=== PATIENT | female | born 1980 | race Caucasian/White ===

== ENCOUNTER → 2022-05-29 | Outpatient (CLI) | payer OTHER, SELFPAY | END | disposition home or self-care (01) | LOC: SL 19:52 | PROVIDERS: PCP Family Medicine; Referring Provider Internal Medicine Endocrinology, Diabetes & Metabolism; Visit Provider Internal Medicine Endocrinology, Diabetes & Metabolism | DX: R53.83 Other fatigue (principal); G47.10 Hypersomnia, unspecified | CPT/HCPCS: 95810 ==

== ENCOUNTER → 2022-06-15 | Outpatient (CLI) | payer OTHER, SELFPAY ==
[2022-06-15 12:34] LABS: Absolute Lymphocyte Count 2.22 X10^3/uL (0.83-4.51); Basophil# 0.03 X10^3/uL; Basophil% 0.4 % (0-1); Eosinophil# 0.14 X10^3/uL; Eosinophils% 1.8 % (0-5); Hematocrit 40.4 % (37-47); Hemoglobin 13.2 g/dL (12.0-15.0); Lymphocyte # 2.22 X10^3/ul (0.83-4.51); Lymphocyte % 28.3 % (19-41); Mean Corp Hgb Conc 32.7 g/dL (32-36); Mean Corpuscular Hgb 30.8 pg (27.0-32.0); Mean Corpuscular Volume 94.2 fL (81-99); Mean Platelet Vol. 11.6 fl (6.2-12.0); Monocyte# 0.44 X10^3/uL; Monocyte% 5.6 % (0-10); NRBC Flagged by Analyzer 0 % (0-5); Neutrophil # 4.98 X10^3/uL (2.7-7.7); Neutrophil % 63.4 % (47-70); Platelet Count 261 K/mm3 (150-450); RBC Distribution Width CV 12.6 % (11.6-14.6); RBC Distribution Width SD 43.9 fl (35.1-43.9); Red Blood Count 4.29 M/mm3 (4.2-5.4); White Blood Count 7.9 K/mm3 (4.4-11.0)
[2022-06-15 12:36] LABS: Erythrocyte Sedimentation Rate 17 mm/hr (0-30)
[2022-06-15 13:05] LABS: ALB/GLOB Ratio 0.9 RATIO (0.9-2.4); AST(SGOT) 16 U/L (15-37); Alanine Aminotransfer ALT/SGPT 20 U/L (13-56); Albumin, Serum 3.6 g/dL (3.2-5.0); Alkaline Phosphatase 78 U/L (45-117); Anion Gap 8 (5-15); BUN 11 mg/dL (7-18); BUN/Creat Ratio 13.2 RATIO (10-20); Calcium,Total 9.2 mg/dL (8.5-10.1); Chloride 104 mmol/L (98-107); Creatinine, Serum 0.83 mg/dL (0.55-1.02); EST Glomerular Filtration Rate 81 mL/min (>60); Est Glom Filt Rate - Afr Amer 98 mL/min (>60); Globulin 4.1 g/dL (2.2-4.2); Glucose 89 mg/dL (74-106); Potassium 4.1 mmol/L (3.5-5.1); Protein, Total 7.7 g/dL (6.4-8.2); Rheumatoid Factor < 10.0 IU/mL (<15); Sodium Level 139 mmol/L (136-145)
[2022-06-15 13:44] LABS: Hepatitis B Surface Antibody Non-Reactive; Hepatitis B Surface Antigen Non-Reactive (Nonreactive); Hepatitis C Antibody Non-Reactive (Nonreactive)
[2022-06-16 19:52] LABS: ANTINUCLEAR ANTIBODIES DIRECT Negative (Negative)
[2022-06-16 19:53] LABS: CCP IgG Antibodies 3 units (0-19)
== END | disposition home or self-care (01) ==
LOC: MTLAB 10:58
PROVIDERS: PCP Family Medicine; Referring Provider Internal Medicine Rheumatology; Visit Provider Internal Medicine Rheumatology
DX: M06.4 Inflammatory polyarthropathy (principal); F41.9 Anxiety disorder, unspecified; J45.909 Unspecified asthma, uncomplicated
CPT/HCPCS: 36415; 80053; 85025; 85652; 86038; 86140; 86200; 86431; 86706; 86803; 87340

== ENCOUNTER → 2022-09-23 | Outpatient (CLI) | payer OTHER, SELFPAY ==
[2022-09-23 15:37] LABS: Absolute Lymphocyte Count 1.96 X10^3/uL (0.83-4.51); Absolute Neutrophil Count 5.5 X10^3/uL (2.0-7.7); Basophil# 0.03 X10^3/uL; Basophil% 0.4 % (0-1); Eosinophil# 0.11 X10^3/uL; Eosinophils% 1.4 % (0-5); Hematocrit 37.7 % (37-47); Hemoglobin 12.4 g/dL (12.0-15.0); Lymphocyte # 1.96 X10^3/ul (0.83-4.51); Lymphocyte % 24.5 % (19-41); Mean Corp Hgb Conc 32.9 g/dL (32-36); Mean Corpuscular Hgb 30.7 pg (27.0-32.0); Mean Corpuscular Volume 93.3 fL (81-99); Mean Platelet Vol. 12.1 fl (6.2-12.0); Monocyte# 0.38 X10^3/uL; Monocyte% 4.8 % (0-10); NRBC Flagged by Analyzer 0 % (0-5); Neutrophil % 68.6 % (47-70); Platelet Count 262 K/mm3 (150-450); RBC Distribution Width CV 12.5 % (11.6-14.6); RBC Distribution Width SD 43.5 fl (35.1-43.9); Red Blood Count 4.04 M/mm3 (4.2-5.4)
[2022-09-23 16:07] LABS: ALB/GLOB Ratio 0.9 RATIO (0.9-2.4); AST(SGOT) 19 U/L (15-37); Alanine Aminotransfer ALT/SGPT 15 U/L (13-56); Albumin, Serum 3.4 g/dL (3.2-5.0); Alkaline Phosphatase 71 U/L (45-117); Anion Gap 6 (5-15); BUN 10 mg/dL (7-18); BUN/Creat Ratio 11.5 RATIO (10-20); Chloride 106 mmol/L (98-107); Creatinine, Serum 0.87 mg/dL (0.55-1.02); EST Glomerular Filtration Rate 77 mL/min (>60); Est Glom Filt Rate - Afr Amer 93 mL/min (>60); Globulin 3.8 g/dL (2.2-4.2); Glucose 87 mg/dL (74-106); Potassium 4.2 mmol/L (3.5-5.1); Protein, Total 7.2 g/dL (6.4-8.2); Sodium Level 136 mmol/L (136-145)
== END | disposition home or self-care (01) ==
LOC: MTLAB 12:36
PROVIDERS: PCP Family Medicine; Referring Provider Internal Medicine Rheumatology; Visit Provider Internal Medicine Rheumatology
DX: M06.4 Inflammatory polyarthropathy (principal); Z79.899 Other long term (current) drug therapy
CPT/HCPCS: 36415; 80053; 85025

== ENCOUNTER → 2023-01-18 | Outpatient (CLI) | payer OTHER, SELFPAY ==
[2023-01-18 17:51] LABS: Absolute Lymphocyte Count 2.63 X10^3/uL (0.83-4.51); Absolute Neutrophil Count 5.8 X10^3/uL (2.0-7.7); Basophil# 0.04 X10^3/uL; Basophil% 0.4 % (0-1); Eosinophil# 0.08 X10^3/uL; Eosinophils% 0.9 % (0-5); Hematocrit 36.8 % (37-47); Hemoglobin 12.4 g/dL (12.0-15.0); Lymphocyte # 2.63 X10^3/ul (0.83-4.51); Lymphocyte % 29.1 % (19-41); Mean Corp Hgb Conc 33.7 g/dL (32-36); Mean Corpuscular Hgb 31.4 pg (27.0-32.0); Mean Corpuscular Volume 93.2 fL (81-99); Mean Platelet Vol. 11.5 fl (6.2-12.0); Monocyte# 0.48 X10^3/uL; Monocyte% 5.3 % (0-10); NRBC Flagged by Analyzer 0 % (0-5); Neutrophil % 64.1 % (47-70); Platelet Count 259 K/mm3 (150-450); RBC Distribution Width CV 12.3 % (11.6-14.6); RBC Distribution Width SD 42.4 fl (35.1-43.9); Red Blood Count 3.95 M/mm3 (4.2-5.4); White Blood Count 9.1 K/mm3 (4.4-11.0)
[2023-01-18 18:02] LABS: ALB/GLOB Ratio 0.9 RATIO (0.9-2.4); AST(SGOT) 17 U/L (15-37); Alanine Aminotransfer ALT/SGPT 20 U/L (13-56); Albumin, Serum 3.6 g/dL (3.2-5.0); Alkaline Phosphatase 78 U/L (45-117); Anion Gap 6 (5-15); BUN 12 mg/dL (7-18); BUN/Creat Ratio 12.8 RATIO (10-20); Calcium,Total 8.8 mg/dL (8.5-10.1); Chloride 105 mmol/L (98-107); Creatinine, Serum 0.94 mg/dL (0.55-1.02); EST Glomerular Filtration Rate 70 mL/min (>60); Est Glom Filt Rate - Afr Amer 85 mL/min (>60); Globulin 4.1 g/dL (2.2-4.2); Glucose 83 mg/dL (74-106); Potassium 3.6 mmol/L (3.5-5.1); Protein, Total 7.7 g/dL (6.4-8.2); Sodium Level 139 mmol/L (136-145)
== END | disposition home or self-care (01) ==
PROVIDERS: PCP Family Medicine; Referring Provider Internal Medicine Rheumatology; Visit Provider Internal Medicine Rheumatology
DX: M06.4 Inflammatory polyarthropathy (principal); J45.909 Unspecified asthma, uncomplicated; Z79.899 Other long term (current) drug therapy
CPT/HCPCS: 36415; 80053; 85025

== ENCOUNTER → 2023-07-21 | Outpatient (CLI) | payer OTHER, SELFPAY ==
[2023-07-21 17:36] LABS: Absolute Lymphocyte Count 2.39 X10^3/uL (0.83-4.51); Absolute Neutrophil Count 5.1 X10^3/uL (2.0-7.7); Basophil# 0.03 X10^3/uL; Basophil% 0.4 % (0-1); Eosinophil# 0.13 X10^3/uL; Eosinophils% 1.6 % (0-5); Hematocrit 38.7 % (37-47); Hemoglobin 12.5 g/dL (12.0-15.0); Lymphocyte # 2.39 X10^3/ul (0.83-4.51); Mean Corp Hgb Conc 32.3 g/dL (32-36); Mean Corpuscular Volume 92.8 fL (81-99); Mean Platelet Vol. 11.5 fl (6.2-12.0); Monocyte# 0.58 X10^3/uL; NRBC Flagged by Analyzer 0 % (0-5); Neutrophil # 5.08 X10^3/uL (2.7-7.7); Neutrophil % 61.8 % (47-70); Platelet Count 267 K/mm3 (150-450); RBC Distribution Width CV 12.4 % (11.6-14.6); RBC Distribution Width SD 42.6 fl (35.1-43.9); Red Blood Count 4.17 M/mm3 (4.2-5.4); White Blood Count 8.2 K/mm3 (4.4-11.0)
[2023-07-21 17:47] LABS: ALB/GLOB Ratio 0.9 RATIO (0.9-2.4); AST(SGOT) 16 U/L (15-37); Alanine Aminotransfer ALT/SGPT 17 U/L (13-56); Albumin, Serum 3.5 g/dL (3.2-5.0); Alkaline Phosphatase 78 U/L (45-117); Anion Gap 5 (5-15); BUN 8 mg/dL (7-18); BUN/Creat Ratio 7.9 RATIO (10-20); Calcium,Total 9.3 mg/dL (8.5-10.1); Chloride 105 mmol/L (98-107); Creatinine, Serum 1.01 mg/dL (0.55-1.02); EST Glomerular Filtration Rate 64 mL/min (>60); Est Glom Filt Rate - Afr Amer 78 mL/min (>60); Globulin 4.1 g/dL (2.2-4.2); Glucose 88 mg/dL (74-106); Potassium 3.6 mmol/L (3.5-5.1); Protein, Total 7.6 g/dL (6.4-8.2); Sodium Level 138 mmol/L (136-145)
== END | disposition home or self-care (01) ==
LOC: MTLAB 15:38
PROVIDERS: PCP Family Medicine; Referring Provider Internal Medicine Rheumatology; Visit Provider Internal Medicine Rheumatology
DX: M06.4 Inflammatory polyarthropathy (principal); Z79.899 Other long term (current) drug therapy
CPT/HCPCS: 36415; 80053; 85025

== ENCOUNTER → 2024-02-14 | Outpatient (CLI) | payer OTHER, SELFPAY ==
--- OUTSIDE RECORDS SUMMARY | 2024-02-14 07:52 | XMS RPT_ITS | CCD ---
Author Organization [facility] Care Team Providers Care Utility Division Project Manager Name Role Phone CURLY DO, DR TIM Pisano Primary Care Physician Cristiana Jefferson III Primary Care Provider CRISTIANA JEFFERSON III Primary Care Unavail able CURLY DO, DR TIM Pisano Primary Care Physician CURLY DO, DR TIM Pisano Attending Unavailabl e CURLY DO, DR TIM Pisano Primary Care Unavailabl e CURLY DO, DR TIM Pisano Primary Care Unavailabl e BLOCK 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 GOWN FITTERPREETI Attending Unavail able CURLY DO, DR TIM Pisano Attending Unavailabl e CURLY DO, DR TIM Pisano Primary Care Unavailabl e BLOCK 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 GOWN FITTERPREETI Attending Unavail able CURLY DO, DR TIM Pisano Primary Care Unavailabl e MORETTA DO, CHOCO CHUN Attending Unavaila ble CURLY DO, DR TIM Pisano Primary Care Unavailabl e CURLY DO, DR TIM Pisano Attending Unavailabl e CURLY DO, DR TIM Pisano Primary Care Unavailabl e Allergies Allergy Classification Reported Allergen(s) Allergy Type Date of Onset Reaction(s) Facility Bee/Wasp/Ant Venom (1 source) Bee/Wasp/Ant venom Substance Allergy Weal (disorder), Edema (finding) [facility] Penicillins (antibiotic) (1 source) Penicillin; Translations: [penicillins] Drug Allergy Eruption of skin (disorder) [facility] (8 sources) Bee/Wasp/Ant venom Allergy to substance Weal (disorder), Edema (finding) [facility] (8 sources) Penicillin; Translations: [penicillins] Drug Allergy Eruption of skin (disorder) [facility] Medications Current Medications Medication Drug Class(es) Dates Sig (Normalized) Sig (Original) clotrimazole 10 mg/ml topical cream (1 source) Azole Antifungal Start: 04-09-2023 End: 04-16-2023 clotrimazole 1% topical cream Apply 1 roderick, Topical, TID, X 7 day(s), # 15 gram(s), 0 Refill(s), [id number], Cream, 160, cm, 04/09/23 16:02:00 EST, Height, 95.5, kg, 04/09/23 16:02:00 EST, Dosing Weight Start Date: 04/09/23 Stop Date: 04/16/23 Status: Ordered doxycycline monohydrate 100 mg oral capsule (1 source) Tetracycline-clas s Drug Start: 05-19-2023 doxycycline monohydrate 100 mg oral capsule 0 Refill(s), 95.5 Start Date: 05/19/23 Status: Ordered escitalopram 20 mg oral tablet (11 sources) Serotonin Reuptake Inhibitor Start: 10-18-2023 escitalopram 20 mg oral tablet Dose : 20 mg = 1 tab(s), Oral, qDay, # 90 tab(s), 3 Refill(s), Pharmacy: [facility], Generalized anxiety disorder, 162, cm, 10/18/23 10:31:00 EDT, Height, kg, 10/18/23 10:31:00 EDT, Dosing Weight Start Date: 10/18/23 Status: Ordered Start: 10-12-2022 End: 01-01-2023 escitalopram 20 mg oral tabl et Dose : 20 mg = 1 tab(s), Oral, qDay, # 14 tab(s), 0 Refill(s), [id number], Generalized anxiety disorder, 160, cm, 12/17/22 15:11:00 EDT, Height, kg, 12/17/22 15:11:00 EDT, Dosing Weight Start Date: 12/18/22 Stop Date: 01/01/23 Status: Ordered Start: 12-17-2021 escitalopram 2 0 mg oral tablet Dose : 20 mg = 1 tab(s), Oral, qDay, # 90 tab(s), 3 Refill(s), Pharmacy: [facility], Generalized anxiety disorder, 161, cm, 11/06/21 13:59:00 EDT, Height, kg, 12/04/21 10:26:00 EDT, Dosing Weight Start Date: 12/17/21 Status: Ordered Start: 10-13-2021 escitalopram 2 0 mg oral tablet Dose : 20 mg = 1 tab(s), Oral, qDay, # 90 tab(s), 3 Refill(s), Pharmacy: [facility], Generalized anxiety disorder, 161, cm, 10/13/21 15:47:00 EDT, Height, kg, 10/13/21 15:47:00 EDT, Dosing Weight Start Date: 10/13/21 Status: Ordered Start: 01-09-2021 take 1 tablet by shabnam th once daily escitalopram 20 mg oral tablet See Instructions, 1 by mouth daily, # 90 tab(s), 3 Refill(s), Pharmacy: [facility], Generalized anxiety disorder, 160, cm, 01/01/21 16:04:00 EDT, Height, kg, 01/01/21 16:04:00 EDT, Dosing Weight Start Date: 01/09/21 Status: Ordered ethinyl estradiol 0.02 mg / ferrous fumarate 75 mg / norethindrone 1 mg oral tablet (12 sources) Estrogen Start: 09-02-2023 take 1 tablet by mouth once daily [facility] 05/15 oral tablet Dose = 1 tab(s), Oral, qDay, # 84 tab(s), 3 Refill(s), Pharmacy: [facility], Contraception management Well woman exam with routine gynecological exam, 160, cm, 10/21/23 10:35:00 EDT, Height, kg, 10/21/23 10:35:00 EDT, Dosing Weight Start Date: 10/21/23 Status: Ordered Start: 07-14-2022 take 1 tablet by shabnam th once daily June05/15 oral tablet Dose = 1 tab(s), Oral, qDay, # 84 tab(s), 4 Refill(s), Pharmacy: [facility], Well woman exam with routine gynecological exam Contraception management, 161, cm, 10/14/22 10:21:00 EDT, Height Start Date: 10/14/22 Status: Ordered Start: 08-19-2021 take 1 tablet by shabnam th once daily 05/15 oral tablet Dose = 1 tab(s), Oral, qDay, # 84 tab(s), 3 Refill(s), Pharmacy: [facility], Well woman exam Contraception management, 160, cm, 08/19/21 15:48:00 EDT, Height Start Date: 08/19/21 Status: Ordered hydroxychloroquine sulfate 200 mg oral tablet (6 sources) Antimalarial, Antirheumatic Agent Start: 08-22-2022 take 1 tablet by mouth twice daily hydroxychloroquine 200 mg oral tablet TAKE 1 TABLET BY MOUTH TWICE A DAY Start Date: 08/22/22 Status: Ordered ibuprofen 200 mg oral tablet (4 sources) Nonsteroidal Anti-inflammatory Drug Start: 04-14-2022 ibuprofen 200 mg oral tablet Dose : 400 mg = 2 tab(s), Oral, q6hr, PRN pain or fever, 0 Refill(s) Start Date: 04/14/22 Status: Ordered 1.09/22 oral tablet (1 source) Start: 05-13-2021 take 1 tablet by mouth once daily .09/22 oral tablet See Instructions, TAKE 1 TABLET DAILY, # 84 tab(s), 0 Refill(s), Pharmacy: [facility], 160, cm, 04/10/21 11:42:00 EST, Height, kg, 04/10/21 11:42:00 EST, Dosing Weight Start Date: 05/13/21 Status: Ordered levothyroxine sodium 0.05 mg oral tablet (1 source) l-Thyroxine Start: 08-01-2021 levothyroxine 50 mcg (0.05 mg) oral tablet Dose : 50 mcg = 1 tab(s), Oral, qDay, # 30 tab(s), 3 Refill(s), Pharmacy: [facility]/pharmacy #[id number], 160, cm, 08/01/21 9:20:00 EDT, Height Start Date: 08/01/21 Status: Ordered LORazepam 0.5 mg oral tablet (9 sources) Benzodiazepine Start: 10-18-2023 End: 12-17-2023 LORazepam 0.5 mg oral tablet Dose : 0.5 mg = 1 tab(s), Oral, q6h, fill 10/18/23. as needed for panic symptoms., # 30 tab(s), 1 Refill(s), [id number], Panic attack Generalized anxiety disorder, 162, cm, 10/18/23 10:31:00 EDT, Height, 98, kg, 10/18/23 10:31:00 EDT, Dosing Weight Start Date: 10/18/23 Stop Date: 12/17/23 Status: Ordered Start: 04-09-2023 End: 08-07-2023 LORazepam 0.5 mg oral tablet Dose : 0.5 mg = 1 tab(s), Oral, q6h, fill 04/09/23. as needed for panic symptoms., # 30 tab(s), 3 Refill(s), [id number], Panic attack Generalized anxiety disorder, 160, cm, 04/09/23 16:02:00 EST, Height, 95.5, kg, 04/09/23 16:02:00 EST, Dosing Weight Start Date: 04/09/23 Stop Date: 08/07/23 Status: Ordered Start: 10-12-2022 End: 02-09-2023 LORazepam 0.5 mg oral tablet Dose : 0.5 mg = 1 tab(s), Oral, q6h, fill 11/24/22. as needed for panic symptoms., # 30 tab(s), 3 Refill(s), [id number], Panic attack Generalized anxiety disorder, 163, cm, 10/12/22 10:34:00 EDT, Height, 92.3, kg, 10/12/22 10:34:00... Start Date: 10/12/22 Stop Date: 02/09/23 Status: Ordered Start: 10-13-2021 End: 02-10-2022 LORazepam 0.5 mg oral tablet Dose : 0.5 mg = 1 tab(s), Oral, q6h, as needed for panic symptoms., # 30 tab(s), 3 Refill(s), [id number], Panic attack Generalized anxiety disorder, 161, cm, 10/13/21 15:47:00 EDT, Height, 90.1, kg, 10/13/21 15:47:00 EDT, Dosing We... Start Date: 10/13/21 Stop Date: 02/10/22 Status: Ordered Start: 01-20-2021 End: 04-20-2021 LORazepam 0.5 mg oral tablet Dose : 0.5 mg = 1 tab(s), Oral, q6h, as needed for panic symptoms., # 30 tab(s), 2 Refill(s), [id number], Panic attack Generalized anxiety disorder, 160, cm, 01/20/21 16:15:00 EDT, Height, 85.1, kg, 01/20/21 16:15:00 EDT, Dosing We... Start Date: 01/20/21 Stop Date: 04/20/21 Status: Ordered montelukast 10 mg oral tablet (9 sources) Leukotriene Receptor Antagonist Start: 10-13-2021 montelukast 10 mg oral tablet Dose : 10 mg = 1 tab(s), Oral, qDay, # 90 tab(s), 3 Refill(s), Pharmacy: [facility], 161, cm, 10/13/21 15:47:00 EDT, Height, kg, 10/13/21 15:47:00 EDT, Dosing Weight Start Date: 10/13/21 Status: Ordered Start: 09-09-2020 montelukast 10 mg oral tablet Dose : 10 mg = 1 tab(s), Oral, qDay, # 90 tab(s), 3 Refill(s), Pharmacy: [facility], 160, cm, 07/01/20 15:13:00 EST, Height, kg, 07/01/20 15:13:00 EST, Dosing Weight Start Date: 09/09/20 Status: Ordered mupirocin 0.02 mg/mg topical ointment (1 source) RNA Synthetase Inhibitor Antibacterial Start: 04-09-2023 End: 04-16-2023 mupirocin 2% topical ointment Apply 1 roderick, Topical, TID, X 7 day(s), # 15 gram(s), 0 Refill(s), [id number], Ointment, 160, cm, 04/09/23 16:02:00 EST, Height, 95.5, kg, 04/09/23 16:02:00 EST, Dosing Weight Start Date: 04/09/23 Stop Date: 04/16/23 Status: Ordered phentermine hydrochloride 37.5 mg oral tablet (1 source) Sympathomimetic Amine Anorectic Start: 10-18-2023 End: 01-16-2024 phentermine 37.5 mg oral tablet Dose : 37.5 mg = 1 tab(s), Oral, qAM, fill 10/18/23. BMI 37., X 30 day(s), # 30 tab(s), 2 Refill(s), 01/16/24 11:10:00 AM EDT, [id number], BMI 37.0-37.9, adult, 162, cm, 10/18/23 10:31:00 EDT, Height, 98, kg, 10/18/23 10:31:00 EDT, Dosing Weight Start Date: 10/18/23 Stop Date: 01/16/24 Status: Ordered predniSONE 10 mg oral tablet (6 sources) Start: 10-18-2023 predniSONE 10 mg oral tablet as needed, 0 Refill(s) Start Date: 10/18/23 Status: Ordered Start: 05-05-2022 End: 05-17-2022 take 1 tablet by mouth twice daily prednisone 10mg tab (TAPER) Taper 30-20-10-5 mg x 3 days each dose, Oral, BID, # 39 tab(s), 0 Refill(s), Pharmacy: [facility]/pharm[facility] #[id number], Post-viral cough syndrome, 161.29, cm, 05/05/22 10:38:00 EST, Height Start Date: 05/05/22 Stop Date: 05/17/22 Status: Ordered Completed/Discontinued Medications Medication Drug Class(es) Dates Sig (Normalized) Sig (Original) [id number] 0.3 ml EPINEPHrine 1 mg/ml auto-injector (8 sources) alpha-Adrenergic Agonist, beta-Adrenergic Agonist, Catecholamine Start: 10-12-2022 EpiPen 2-Darren 0.3 mg injectable kit Dose : 0.3 mg =, Subcutaneous, AsDirected, PRN Allergic reaction, okay to switch to generic, # 1 kit(s), 0 Refill(s), [id number], 163, cm, 10/12/22 10:34:00 EDT, Height, kg, 10/12/22 10:34:00 EDT, Dosing Weight Start Date: 10/12/22 Status: Ordered Start: 10-13-2021 EpiPen 2-Darren 0 .3 mg injectable kit Dose : 0.3 mg =, Subcutaneous, AsDirected, PRN Allergic reaction, okay to switch to generic, # 1 kit(s), 0 Refill(s), [id number], 161, cm, 10/13/21 15:47:00 EDT, Height Start Date: 10/13/21 Status: Ordered gabapentin 100 mg oral capsule (1 source) Anti-epileptic Agent Start: 07-28-2023 End: 08-27-2023 gabapentin 100 mg oral capsule Dose : 100 mg = 1 cap(s), Oral, qHS, # 30 cap(s), 0 Refill(s), [id number], Cubital tunnel syndrome on right Thoracic outlet syndrome, 160, cm, 07/28/23 8:04:00 EDT, Height, 95.7, kg, 07/28/23 8:04:00 EDT, Dosing Weight Start Date: 07/28/23 Stop Date: 08/27/23 Status: Ordered traMADol hydrochloride 50 mg oral tablet (1 source) Opioid Agonist Start: 10-18-2023 traMADol 50 mg oral tablet Dose : 50 mg = 1 tab(s), Oral, TID, PRN as needed, 0 Refill(s), 95.7 Start Date: 10/18/23 Status: Ordered Problems Problem Classification Problem Date Documented Da te Episodic/Chronic Abdominal pain (3 sources) Right upper quadrant pain 12-16-2022 Episodic Acute and chronic tonsillitis (9 sources) Enlarged tonsil 01-02-2021 Chronic Allergic reactions (9 sources) Allergy to bee venom 10-09-2019 Episodic Anxiety disorders (9 sources) Generalized anxiety disorder 10-30-2019 Chronic Deficiency and other anemia (9 sources) Anemia 03-06-2021 Episodic Immunizations and screening for infectious disease (2 sources) Patient encounter status; Translations: [Encounter for immunization] Onset: 02-20-2022 Episodic Malaise and fatigue (9 sources) Fatigue 03-06-2021 Episodic Nutritional deficiencies (9 sources) Vitamin D deficiency 03-06-2021 Chronic Other connective tissue disease (2 sources) Hand pain 05-19-2023 Episodic Other nervous system disorders (1 source) Thoracic outlet syndrome 07-28-2023 Chronic Other non-traumatic joint disorders (9 sources) Joint pain 03-06-2021 Episodic Other nutritional; endocrine; and metabolic disorders (9 sources) Abnormal weight gain 03-06-2021 Episodic Other screening for suspected conditions (not mental disorders or infectious disease) (9 sources) Thyroid function tests abnormal 03-06-2021 Episodic Other upper respiratory disease (8 sources) Seasonal allergic rhinitis 10-13-2021 Chronic Other upper respiratory infections (6 sources) Chronic sinusitis 05-14-2022 Chronic Unclassified (2 sources) 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 2D standard and 3D tomosynthesis combination imaging performed through both breasts in the MLO and CC projection. Computer aided detection was utilized in the interpretation of this exam. COMPARISON: 10/15/2022 HISTORY: Breast cancer screening. FINDINGS: BREAST DENSITY: The breasts are heterogeneously dense, which may obscure small masses. There are no significant masses or calcifications. IMPRESSION: No mammographic evidence of malignancy. Continued screening with annual mammograms is recommended. Angely Radamesmusa risk calculations, generated with the history provided, report this patient's 10 year risk and lifetime risk for developing breast cancer at 2.1% and 15.1%, respectively. Based on this assessment tool, if the patient's calculated lifetime risk is below 20%, then the patient is considered at average risk for developing breast cancer. If the patient's calculated lifetime risk is at or above 20%, then the patient is considered high risk for developing breast cancer and may be a candidate for supplemental breast MRI screening in addition to annual mammographic screening per the [employer] [employer]. BIRADS: BI-RADS: 1: Negative RECALL: 1 year screening RECALL TYPE: mammo LETTER SENT: Normal BI-RADS 1 and 2 Interpreted by: Prosper Ortega MD Preliminary Report By: Prosper Ortega MD Electronically signed By Prosper Ortega MD Dictated Date: 10/22/2023 5:52:39 PM Prelim Date: 10/22/2023 6:18:03 PM Sign Date: 10/22/2023 6:18:03 PM Ordering Provider: PREETI BLOCK Suit Attendant: JAYA SANON (Demetrius)(M) letter sent: Normal BI-RADS 1 and 2 Mammogram BI-RADS: 1 Negative Normal [facility] ([place]) .GFRon 10-21-2023 GFR 83 ml/min/1.73sqm Normal [facility] ([place]) Comment on above: Result Comment: GFR Population mean for , Non- Americans Ages 20-29 = 116 mL/min/1.73 sq.m. Ages 30-39 = 107 mL/min/1.73 sq.m. Ages 40-49 = 99 mL/min/1.73 sq.m. Ages 50-59 = 93 mL/min/1.73 sq.m. Ages 60-69 = 85 mL/min/1.73 sq.m. Ages 70+ = 75 mL/min/1.73 sq.m. Chronic Kidney Disease: Less than 60 mL/min/1.73 square meters End Stage Renal Disease: Less than 15 mL/min/1.73 square meters Performed By: #### L IPID, GFR, CMP #### [address] [address] GFR Non- 68 ml/min/1.73sqm Normal [facility] ([place]) Comment on above: Result Comment: GFR Population mean for , Non- Americans Ages 20-29 = 116 mL/min/1.73 sq.m. Ages 30-39 = 107 mL/min/1.73 sq.m. Ages 40-49 = 99 mL/min/1.73 sq.m. Ages 50-59 = 93 mL/min/1.73 sq.m. Ages 60-69 = 85 mL/min/1.73 sq.m. Ages 70+ = 75 mL/min/1.73 sq.m. Chronic Kidney Disease: Less than 60 mL/min/1.73 square meters End Stage Renal Disease: Less than 15 mL/min/1.73 square meters Performed By: #### L IPID, GFR, CMP #### [address] [address] CMPon 10-21-2023 Albumin Level 4.0 G/dL Normal 3.5-5.0 [facility] ([place]) Comment on above: Performed By: #### L IPID, GFR, CMP #### [address] [address] Albumin/Globulin [Mass ratio] 1.1 {ratio} Normal 1.1-2.5 [facility] ([place]) Comment on above: Performed By: #### L IPID, GFR, CMP #### [address] [address] ALP [Catalytic activity/Vol] 105 U/L Normal 40-135 [facility] ([place]) Comment on above: Performed By: #### L IPID, GFR, CMP #### [address] [address] ALT [Catalytic activity/Vol] 31 U/L Normal 14-59 [facility] ([place]) Comment on above: Performed By: #### L IPID, GFR, CMP #### [address] [address] AST [Catalytic activity/Vol] 22 U/L Normal 10-40 [facility] ([place]) Comment on above: Performed By: #### L IPID, GFR, CMP #### [address] [address] Bili Total 1.3 mg/dL High 0.2-1.0 [facility] ([place]) Comment on above: Result Comment: Use of this assay is not recommended for patients undergoing treatment with eltrombopag due to the potential for falsely elevated results. Performed By: #### L IPID, GFR, CMP #### [address] [address] BUN/Creatinine Ratio 10 ratio Normal 7-27 [facility] ([place]) Comment on above: Performed By: #### L IPID, GFR, CMP #### [address] [address] Calcium [Mass/Vol] 9.1 mg/dL Normal 8.4-10.2 [facility] ([place]) Comment on above: Performed By: #### L IPID, GFR, CMP #### [address] [address] Chloride [Moles/Vol] 99 mmol/L Normal 98-107 [facility] ([place]) Comment on above: Performed By: #### L IPID, GFR, CMP #### [address] [address] CO2 [Moles/Vol] 27 mmol/L Normal 22-29 [facility] ([place]) Comment on above: Performed By: #### L IPID, GFR, CMP #### [address] [address] Creatinine [Mass/Vol] 0.91 mg/dL Normal 0.55-1.02 [facility] ([place]) Comment on above: Performed By: #### L IPID, GFR, CMP #### [address] [address] Electrolyte Balance 11.0 mEq/L Normal 4.0-15.0 [facility] ([place]) Comment on above: Performed By: #### L IPID, GFR, CMP #### [address] [address] Globulin 3.5 G/dL Normal [facility] ([place]) Comment on above: Performed By: #### L IPID, GFR, CMP #### [address] [address] Glucose [Mass/Vol] 96 mg/dL Normal 70-105 [facility] ([place]) Comment on above: Performed By: #### L IPID, GFR, CMP #### [address] [address] Potassium [Moles/Vol] 4.5 mmol/L Normal 3.5-5.1 [facility] ([place]) Comment on above: Performed By: #### L IPID, GFR, CMP #### [address] [address] Sodium [Moles/Vol] 137 mmol/L Normal 136-145 [facility] ([place]) Comment on above: Performed By: #### L IPID, GFR, CMP #### [address] [address] Total Protein 7.5 G/dL Normal 6.4-8.2 [facility] ([place]) Comment on above: Performed By: #### L IPID, GFR, CMP #### [address] [address] Urea nitrogen [Mass/Vol] 9 mg/dL Normal 7-18 [facility] ([place]) Comment on above: Performed By: #### L IPID, GFR, CMP #### [address] [address] LIPIDon 10-21-2023 Cholesterol [Mass/Vol] 185 mg/dL Normal 0-200 [facility] ([place]) Comment on above: Result Comment: Chol esterol Reference Interval: Less than 200 Desirable 200-239 Borderline high risk 240 and above High risk Performed By: #### L IPID, GFR, CMP #### Phill [address] [address] Cholesterol in HDL [Mass/Vol] 42 mg/dL Normal 40-60 [facility] ([place]) Comment on above: Performed By: #### L IPID, GFR, CMP #### Phill [address] [address] Cholesterol in LDL [Mass/Vol] 131 mg/dL High 0-130 [facility] ([place]) Comment on above: Performed By: #### L IPID, GFR, CMP #### Phill [address] [address] Triglyceride [Mass/Vol] 61 mg/dL Normal 0-150 [facility] ([place]) Comment on above: Result Comment: Trig lyceride Reference Interval: Less than 150 Normal 150-199 Borderline high risk 200-499 High risk 500 or higher Very high risk Performed By: #### L IPID, GFR, CMP #### Phill [address] [address] TSHon 10-21-2023 TSH Qn 2.41 m[IU]/L Normal 0.36-3.74 [facility] ([place]) Comment on above: Performed By: #### T SH #### [address] [address] GLUon 04-12-2023 Glucose [Mass/Vol] 99 mg/dL Normal 70-105 [facility] ([place]) Comment on above: Performed By: #### T SH, GLU #### [address] [address] LABORATORYOrdered By: SYSTEM SYSTEM on 04-12-2023 Glucose [Mass/Vol] 99 mg/dL Normal 70 - 105 mg/dL AO ADM SS TSH Qn 1.73 m[IU]/L Normal 0.36 - 3.74 mcIU/mL AO ADM SS TSHon 04-12-2023 TSH Qn 1.73 m[IU]/L Normal 0.36-3.74 [facility] ([place]) Comment on above: Performed By: #### T SH, GLU #### [place] [address] [place], [place] [address] [facility] IMAGINGon 11-09-2022 [facility] HEPATOBILIARY DUCT SYSTEM IMAGING ORIGINAL EXAMINATION: HIDA11/09/2022 11:32 am NM HIDA SCAN NM HEPATOBILIARY Scan with CCK stimulation CLINICAL STATEMENT: Right upper quadrant pain, no gallbladder stones on ultrasound TECHNIQUE: Radiopharmaceutical : Tc-99m Mebrofenin Dose: 5.3 mCi IV Dynamic anterior imaging of the liver Sincalide CCK Dose: 1.8 mcg IV infusion 30 minute additional dynamic study and GBEF calculation HISTORY: ORDERING SYSTEM PROVIDED HISTORY: Reason for Exam: right upper quadrant pain; no GB stones on ultrasound FINDINGS: There is prompt normal hepatic uptake. No apparent focal cold defect is seen in the liver. The biliary tree, common bile duct, gallbladder, and small bowel are all visualized within the normal time range. The gallbladder contracts adequately to CCK stimulation. The calculated gallbladder ejection fraction is 36% (normal = or > than 35%). IMPRESSION: The cystic duct is patent which excludes the diagnosis of acute cholecystitis. There is low normal gallbladder filling and contraction in response to CCK administration. No focal cold hepatic defects present. Interpreted by: Margie Mcmillan Preliminary Report By: Laron Minor Electronically signed By Margie Mcmillan Dictated Date: 11/09/2022 12:48:59 PM Prelim Date: 11/09/2022 5:26:25 PM Sign Date: 11/09/2022 5:26:25 PM Ordering Provider: TIM Matos [facility] ([place]) LABORATORYOrdered By: Jennifer Ly on 03-21-2022 Albumin BCP dye [Mass/Vol] 3.8 G/dL Invalid Interpretation Code 3.5 - 5.0 G/dL AO ADM SS Albumin/Globulin [Mass ratio] 1.1 {ratio} Invalid Interpretation Code 1.1 - 2.5 ratio AO ADM SS ALP [Catalytic activity/Vol] 94 U/L Invalid Interpretation Code 40 - 135 U/L AO ADM SS ALT With P-5'-P [Catalytic activity/Vol] 19 U/L Invalid Interpretation Code 14 - 59 U/L AO ADM SS AST With P-5'-P [Catalytic activity/Vol] 21 U/L Invalid Interpretation Code 10 - 40 U/L AO ADM SS Bilirubin [Mass/Vol] 0.9 mg/dL Invalid Interpretation Code 0.2 - 1.0 mg/dL AO ADM SS Calcium [Mass/Vol] 9.6 mg/dL Invalid Interpretation Code 8.4 - 10.2 mg/dL AO ADM SS Chloride [Moles/Vol] 101 mmol/L Invalid Interpretation Code 98 - 107 mmol/L AO ADM SS CO2 [Moles/Vol] 32 mmol/L Invalid Interpretation Code 22 - 29 mmol/L AO ADM SS Creatinine [Mass/Vol] 0.89 mg/dL Invalid Interpretation Code 0.55 - 1.02 mg/dL AO ADM SS Electrolyte Balance 6.0 mEq/L Invalid Interpretation Code 4.0 - 15.0 mEq/L AO ADM SS Free T3 [Mass/Vol] 2.54 pg/mL Invalid Interpretation Code 2.30 - 4.00 pg/mL AO ADM SS Free T4 [Mass/Vol] 0.77 ng/dL Invalid Interpretation Code 0.76 - 1.46 ng/dL AO ADM SS Globulin 3.6 G/dL Invalid Interpretation Code AO ADM SS Glucose [Mass/Vol] 90 mg/dL Invalid Interpretation Code 70 - 105 mg/dL AO ADM SS Potassium [Moles/Vol] 4.3 mmol/L Invalid Interpretation Code 3.5 - 5.1 mmol/L AO ADM SS Protein [Mass/Vol] 7.4 G/dL Invalid Interpretation Code 6.4 - 8.2 G/dL AO ADM SS Sodium [Moles/Vol] 139 mmol/L Invalid Interpretation Code 136 - 145 mmol/L AO ADM SS TSH Qn 1.21 m[IU]/L Invalid Interpretation Code 0.36 - 3.74 mcIU/mL AO ADM SS Urea nitrogen [Mass/Vol] 13 mg/dL Invalid Interpretation Code 7 - 18 mg/dL AO ADM SS Urea nitrogen/Creatinine [Mass ratio] 15 ratio Invalid Interpretation Code 7 - 27 ratio AO ADM SS LABORATORYOrdered By: SYSTEM SYSTEM on 03-21-2022 GFR 86 ml/min/1.73sqm Invalid Interpretation Code AO Chemistry S GFR Non- 71 ml/min/1.73sqm Invalid Interpretation Code AO Chemistry S CNOVon 02-20-2022 CNOV Office Visit (PEDSWS) ---- ANA MAYA ([id number]) 1980 F Date Time Provider Department 02/20/22 10:00 AM NURSE MITCHELL ROSSI During your visit today, we recorded the following information about you: Allergies As of Date: 02/20/2022 (Not on File) Date Reviewed: Never Reviewed Primary Visit Diagnosis:Encounter for immunization [Z23] Order(s):INFLUENZA VACCINE QUADRIVALENT 6 MO - 64 YRS IM [[id number]] Order #: [id number] Problem List As Of Date: 02/20/2022 (None) Encounter Status:Closed by JIE ORTIZ LPN on 02/20/22 [facility] LABORATORYOrdered By: Lita Krishna on 11-03-2021 Albumin BCP dye [Mass/Vol] 3.7 G/dL Invalid Interpretation Code 3.5 - 5.0 G/dL AO ADM SS Albumin/Globulin [Mass ratio] 1.1 {ratio} Invalid Interpretation Code 1.1 - 2.5 ratio AO ADM SS ALP [Catalytic activity/Vol] 83 U/L Invalid Interpretation Code 40 - 135 U/L AO ADM SS ALT With P-5'-P [Catalytic activity/Vol] 25 U/L Invalid Interpretation Code 14 - 59 U/L AO ADM SS AST With P-5'-P [Catalytic activity/Vol] 17 U/L Invalid Interpretation Code 10 - 40 U/L AO ADM SS Bilirubin [Mass/Vol] 0.8 mg/dL Invalid Interpretation Code 0.2 - 1.0 mg/dL AO ADM SS Calcium [Mass/Vol] 9.2 mg/dL Invalid Interpretation Code 8.4 - 10.2 mg/dL AO ADM SS Chloride [Moles/Vol] 102 mmol/L Invalid Interpretation Code 98 - 107 mmol/L AO ADM SS CO2 [Moles/Vol] 27 mmol/L Invalid Interpretation Code 22 - 29 mmol/L AO ADM SS Creatinine [Mass/Vol] 0.89 mg/dL Invalid Interpretation Code 0.55 - 1.02 mg/dL AO ADM SS CRP [Mass/Vol] 4.6 mg/dL Invalid Interpretation Code 0.0 - 0.9 mg/dL AO ADM SS Electrolyte Balance 8.0 mEq/L Invalid Interpretation Code 4.0 - 15.0 mEq/L AO ADM SS ESR 15 minute reading (Bld) [Velocity] 42 mm/hr Invalid Interpretation Code 0 - 20 mm/hr AO Man Heme SS Free T3 [Mass/Vol] 2.38 pg/mL Invalid Interpretation Code 2.30 - 4.00 pg/mL AO ADM SS Free T4 [Mass/Vol] 0.90 ng/dL Invalid Interpretation Code 0.76 - 1.46 ng/dL AO ADM SS Globulin 3.4 G/dL Invalid Interpretation Code AO ADM SS Glucose [Mass/Vol] 88 mg/dL Invalid Interpretation Code 70 - 105 mg/dL AO ADM SS Potassium [Moles/Vol] 4.5 mmol/L Invalid Interpretation Code 3.5 - 5.1 mmol/L AO ADM SS Protein [Mass/Vol] 7.1 G/dL Invalid Interpretation Code 6.4 - 8.2 G/dL AO ADM SS Sodium [Moles/Vol] 137 mmol/L Invalid Interpretation Code 136 - 145 mmol/L AO ADM SS TSH Qn 0.26 m[IU]/L Invalid Interpretation Code 0.36 - 3.74 mcIU/mL AO ADM SS Urea nitrogen [Mass/Vol] 11 mg/dL Invalid Interpretation Code 7 - 18 mg/dL AO ADM SS Urea nitrogen/Creatinine [Mass ratio] 12 ratio Invalid Interpretation Code 7 - 27 ratio AO ADM SS Vit. D 25-Hydroxy 39.2 ng/mL Invalid Interpretation Code AO ADM SS LABORATORYOrdered By: SYSTEM SYSTEM on 11-03-2021 GFR 86 ml/min/1.73sqm Invalid Interpretation Code AO Chemistry S GFR Non- 71 ml/min/1.73sqm Invalid Interpretation Code AO Chemistry S LABORATORYOrdered By: Mitchell Esparza on 07-19-2021 Albumin BCP dye [Mass/Vol] 3.6 G/dL Invalid Interpretation Code 3.5 - 5.0 G/dL AO ADM SS Albumin/Globulin [Mass ratio] 1.1 {ratio} Invalid Interpretation Code 1.1 - 2.5 ratio AO ADM SS ALP [Catalytic activity/Vol] 78 U/L Invalid Interpretation Code 40 - 135 U/L AO ADM SS ALT With P-5'-P [Catalytic activity/Vol] 23 U/L Invalid Interpretation Code 14 - 59 U/L AO ADM SS AST With P-5'-P [Catalytic activity/Vol] 18 U/L Invalid Interpretation Code 10 - 40 U/L AO ADM SS Bilirubin [Mass/Vol] 0.6 mg/dL Invalid Interpretation Code 0.2 - 1.0 mg/dL AO ADM SS Calcium [Mass/Vol] 9.0 mg/dL Invalid Interpretation Code 8.4 - 10.2 mg/dL AO ADM SS Chloride [Moles/Vol] 104 mmol/L Invalid Interpretation Code 98 - 107 mmol/L AO ADM SS CO2 [Moles/Vol] 25 mmol/L Invalid Interpretation Code 22 - 29 mmol/L AO ADM SS Creatinine [Mass/Vol] 0.93 mg/dL Invalid Interpretation Code 0.55 - 1.02 mg/dL AO ADM SS CRP [Mass/Vol] 3.4 mg/dL Invalid Interpretation Code 0.0 - 0.9 mg/dL AO ADM SS Electrolyte Balance 12.0 mEq/L Invalid Interpretation Code 4.0 - 15.0 mEq/L AO ADM SS Globulin 3.4 G/dL Invalid Interpretation Code AO ADM SS Glucose [Mass/Vol] 90 mg/dL Invalid Interpretation Code 70 - 105 mg/dL AO ADM SS Potassium [Moles/Vol] 4.6 mmol/L Invalid Interpretation Code 3.5 - 5.1 mmol/L AO ADM SS Protein [Mass/Vol] 7.0 G/dL Invalid Interpretation Code 6.4 - 8.2 G/dL AO ADM SS Sodium [Moles/Vol] 141 mmol/L Invalid Interpretation Code 136 - 145 mmol/L AO ADM SS TSH Qn 1.65 m[IU]/L Invalid Interpretation Code 0.36 - 3.74 mcIU/mL AO ADM SS Urea nitrogen [Mass/Vol] 9 mg/dL Invalid Interpretation Code 7 - 18 mg/dL AO ADM SS Urea nitrogen/Creatinine [Mass ratio] 10 ratio Invalid Interpretation Code 7 - 27 ratio AO ADM SS Vit. 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 [facility] Start: 10-21-2023 End: 10-21-[address] TIM RAWLS DO Facility:B Start: 06-30-2023 End: 06-30-2023 ambulatory CHOCO CARRASQUILLO DO Facility:A Start: 06-30-2023 End: 06-30-2023 Minor Procedure CHOCO CARRASQUILLO DO [facility] Start: 04-12-2023 End: 04-12-[address] TIM RAWLS DO Facility:B Start: 04-12-2023 End: 04-12-[address] TIM RAWLS DO [facility] Start: 11-09-2022 End: 11-09-[address] TIM RAWLS DO Facility:B Start: 10-15-2022 End: 10-15-[address] TIM RAWLS DO [facility] Start: 10-14-2022 End: 10-18-2022 Outreach Lab PREETI UMAIR 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 [employer] FITTER [facility] Start: 03-21-2022 End: 03-21-2022 Patient encounter procedure NAOMY JEROME MD [facility] Start: 02-20-2022 End: 10-29-2022 ambulatory [facility] Facility:[facility] Start: 02-20-2022 End: 02-20-2022 Patient encounter procedure Nurse [facility] Comment on above: Encounter for immuni zation (Primary Dx) Start: 11-03-2021 End: 11-03-2021 Patient encounter procedure NAOMY JEROME MD [facility] Start: 07-19-2021 End: 07-19-2021 Patient encounter procedure NAOMY JEROME MD [facility] Procedures Date Procedure Procedure Detail Performing Clinician Start: 02-20-2022 INFLUENZA VACCINE QUADRIVALENT 6 MO - 64 YRS IM Radha Kennedy MD Work Phone: section NAOMY ISABEL MD Plan of Treatment Date Care Activity Detail Author Start: 04-26-2021 DEPRESSION ASSESSMENT DEPRESSION ASS ESSMENT [facility] Start: 09-13-2020 COVID-19 VACCINE (3 - Booster for Moderna series) COVID-19 VACCINE (3 - Booster for Moderna series) [facility] Start: 2012 HPV TESTING HPV TESTING [facility] Start: 08-13-2003 PAP TESTING PAP TESTING [facility] Start: 2001 Urine microalbumin profile DTAP,TDAP ,TD (1 - Tdap) [facility] Start: 2000 HEPATITIS C SCREENING HEPATITIS C CAMELIA VASQUEZ [facility] Start: 2000 HIV SCREENING HIV SCREENING [facility] Start: 1982 HEPATITIS B (1 of 3 - 3-dose series) HEPATITIS B (1 of 3 - 3-dose series) [facility] Immunizations Immunization Date Immunization Notes Care Provider Gold valle 02-16-2023 influenza, injectabl e, quadrivalent, contains preservative; Translations: [Fluarix PF Quadrivalent ] DR TIM RAWLS DO [facility] 02-20-2022 influenza, injectabl e, quadrivalent, contains preservative Nurse [facility] 02-15-2021 influenza, injectabl e, quadrivalent, contains preservative Nurse [facility] Work Phone: 07-19-2020 COVID-19, mRNA, LNP- S, PF, 100 mcg or 50 mcg dose; Translations: [Moderna COVID-19 Vaccine] NAOMY JEROME MD [facility] 06-21-2020 COVID-19, mRNA, LNP- S, PF, 100 mcg or 50 mcg dose; Translations: [Moderna COVID-19 Vaccine] NAOMY JEROME MD [facility] 02-07-2020 influenza, injectabl e, quadrivalent, contains preservative Nurse [facility] 02-25-2019 influenza, injectabl e, quadrivalent, preservative free Nurse [facility] Work Phone: 02-07-2018 influenza, injectabl e, quadrivalent, contains preservative Nurse [facility] Work Phone: 03-30-2017 influenza, injectabl e, quadrivalent, contains preservative Nurse [facility] 02-15-2016 influenza, injectabl e, quadrivalent, contains preservative Nurse [facility] Work Phone: 01-26-2015 influenza, injectabl e, quadrivalent, contains preservative Nurse [facility] Payers Date Payer Category Payer Unknown MMO MMO [employer] [id number] 2014-Present [phone] [address] [place] [address] O [id number] 2014 Unknown [id number] 1980 Unknown [id number] 1980 Unknown [id number] 1980 Unknown [id number] 1980 Unknown [id number] 1980 Unknown [id number] 1980 Unknown [id number] Social History Date Type Detail Facility Start: 10-09-2019 End: 07-28-2023 Never smoked tobacco (finding) [facility] Comment on above: No Tobacco/Smoke Exp osure Sex Assigned At Female [facility] Tobacco smoking status [facility] Tobacco smoking consumption unknown [facility] Start: 1980 Sex Assigned At Not on file C [facility] Clinical Notes 10-15-2022 Note Date & Type Note Facility 10-15-2022 Note ORIGINAL HISTORY: Right upper quadrant pain COMPARISON: 03 January 2015 TECHNIQUE: The following organs are evaluated: liver, pancreas, gallbladder, common bile duct and right kidney. FINDINGS: There is a small left hepatic cysts, about 13 mm in maximum diameter. The evaluated abdominal organs are otherwise unremarkable. There is no sonographic Ruiz's sign. The common bile duct is within normal limits at 2 mm in diameter. There is no free fluid. IMPRESSION: Unremarkable examination. Interpreted by: Manuel Couch MD Preliminary Report By: Manuel Couch MD Electronically signed By Manuel Couch MD Dictated Date: 10/15/2022 2:22:51 PM Prelim Date: 10/15/2022 2:23:47 PM Sign Date: 10/15/2022 2:23:47 PM Ordering Provider: TIM RAWLS [facility] 10-15-2022 Note ORIGINAL HISTORY: Right upper quadrant pain COMPARISON: 03 January 2015 TECHNIQUE: The following organs are evaluated: liver, pancreas, gallbladder, common bile duct and right kidney. FINDINGS: There is a small left hepatic cysts, about 13 mm in maximum diameter. The evaluated abdominal organs are otherwise unremarkable. There is no sonographic Ruiz's sign. The common bile duct is within normal limits at 2 mm in diameter. There is no free fluid. IMPRESSION: Unremarkable examination. Interpreted by: Manuel Couch MD Preliminary Report By: Manuel Couch MD Electronically signed By Manuel Couch MD Dictated Date: 10/15/2022 2:22:51 PM Prelim Date: 10/15/2022 2:23:47 PM Sign Date: 10/15/2022 2:23:47 PM Ordering Provider: TIM RAWLS [facility] Evaluation + Plan note Future Appointments Appointment Date:07/22/2021 02:15:00 PM Scheduled Provider:NAOMY JEROME MD Location:[facility] Appointment Type:ENDO OV Appointment Date:10/06/2021 03:35:00 PM Scheduled Provider:TIM RAWLS DO [facility] Appointment Type:PC OV Diagnostic Tests PendingFree T4 07/19/21Free T3 07/19/21 [facility] Evaluation + Plan note Future Appointments Appointment Date:11/06/2021 02:00:00 PM Scheduled Provider:NAOMY JEROME MD Location:[facility] Appointment Type:ENDO OV Appointment Date:10/12/2022 10:35:00 AM Scheduled Provider:TIM RAWLS DO Location:[facility] Appointment Type:PC OV Diagnostic Tests PendingAntinuclear Antibody Screen, Serum 11/03/21Rheumatoid Factor 11/03/21 [facility] Evaluation + Plan note Future Appointments Appointment Date:03/24/2022 03:00:00 PM Scheduled Provider:NAOMY JEROME MD Location:[facility] Appointment Type:ENDO OV Appointment Date:10/12/2022 10:35:00 AM Scheduled Provider:TIM RAWLS DO Location:[facility] Appointment Type:PC OV [facility] Evaluation + Plan note Future Appointments Appointment Date:10/18/2023 10:35:00 AM Scheduled Provider:TIM RAWLS DO Location:[facility] Appointment Type:PC Wellness Annual [facility] Evaluation + Plan note Future Appointments Appointment Date:07/14/2023 03:00:00 PM Scheduled Provider:CHOCO CARRASQUILLO DO Location:[facility] Appointment Type:OSM OV Review Testing Appointment Date:10/18/2023 10:35:00 AM Scheduled Provider:TIM RAWLS DO Location:[facility] Appointment Type:PC Wellness Annual [facility] Evaluation + Plan note Future Appointments Appointment Date:01/17/2024 04:35:00 PM Scheduled Provider:TIM RAWLS DO Location:[facility] Appointment Type:PC OV [facility] Evaluation note Diagnosis Encounter for immunization- Primary Need for other specified prophylactic vaccination against single bacterial disease [facility] Narrative No data available for this section [facility] Hospital Discharge instructions No data available for this section [facility] Progress note No data available for this section [facility] Summary Purpose Family History No Family History Records Found No data available for this section No data available for this section No data available for this section No Family History Records Found Advance Directives No Advanced Directives Records FoundNo Advanced Directives Records Found Additional Source Comments Care Team (unrecognized sect ion and content) Care Team Personnel Name: TIM RAWLS DO Position: P4 Physician - Primary Care Med Service: Active Provider Member Role: Primary Care Physician Address: Address: [address] [facility] [place], [place] [address] Care Team Related Persons Name: VONDA MAYA Address: Home [address] [place], [place] [id number] Name: REBA MAYA Care Team Personnel Name: TIM RAWLS DO Position: P4 Physician - Primary Care Member Role: Primary Care Physician Address: Address: [address] [place] [address]- Care Team Related Persons Name: VONDA MAYA Address: Home [address] [place] [phone] [place] Name: REBA MAYA Source Comments (unrecognize d section and content) In the event this informatio n is protected by the Federal Confidentiality of Alcohol and Drug Abuse Patient Records regulations: The Federal rules restrict any use of the information to criminally investigate or prosecute any alcohol or drug abuse patient.[facility] Care Teams (unrecognized sec tion and content) Utility Division Project Manager Relationship Specialty Start Date End Date Cristiana [address] [facility] [place] [address] PCP - General 08/27/03 INFORMATION SOURCE (unrecogn ized section and content) DATE CREATED AUTHOR 02/24/2022 [facility] DATE CREATED AUTHOR AUTHOR'S CARLOS AZUL 10/27/2023 [facility] ([place]) FOR RECORDS PERTAINING TO PATIENTS WHO ARE OR HAVE BEEN ENROLLED IN A CHEMICAL DEPENDENCY/SUBSTANCEABUSE PROGRAM, SOME INFORMATION MAY BE OMITTED. This clinical summary was aggregated from multiple sources. Caution should be exercised in using it in the provision of clinical care. This summary normalizes information from multiple sources, and as a consequence, information in this document may materially change the coding, format and clinical context of patient data. In addition, data may be omitted in some cases. CLINICAL DECISIONS SHOULD BE BASED ON THE PRIMARY CLINICAL RECORDS. [employer] [facility]. provides no warranty or guarantee of the accuracy or completeness of information in this document.
[2024-02-14 10:17] LABS: Absolute Lymphocyte Count 2.11 X10^3/uL (0.83-4.51); Absolute Neutrophil Count 4.5 X10^3/uL (2.0-7.7); Basophil# 0.03 X10^3/uL; Basophil% 0.4 % (0-1); Eosinophil# 0.18 X10^3/uL; Eosinophils% 2.5 % (0-5); Hematocrit 39.2 % (37-47); Hemoglobin 12.6 g/dL (12.0-15.0); Lymphocyte # 2.11 X10^3/ul (0.83-4.51); Lymphocyte % 28.9 % (19-41); Mean Corp Hgb Conc 32.1 g/dL (32-36); Mean Corpuscular Hgb 29.6 pg (27.0-32.0); Mean Corpuscular Volume 92.2 fL (81-99); Mean Platelet Vol. 11.7 fl (6.2-12.0); Monocyte# 0.44 X10^3/uL; NRBC Flagged by Analyzer 0 % (0-5); Neutrophil # 4.52 X10^3/uL (2.7-7.7); Neutrophil % 61.8 % (47-70); Platelet Count 253 K/mm3 (150-450); RBC Distribution Width CV 12.5 % (11.6-14.6); RBC Distribution Width SD 42.4 fl (35.1-43.9); Red Blood Count 4.25 M/mm3 (4.2-5.4); White Blood Count 7.3 K/mm3 (4.4-11.0)
[2024-02-14 10:41] LABS: ALB/GLOB Ratio 0.9 RATIO (0.9-2.4); AST(SGOT) 20 U/L (15-37); Alanine Aminotransfer ALT/SGPT 22 U/L (13-56); Albumin, Serum 3.6 g/dL (3.2-5.0); Alkaline Phosphatase 80 U/L (45-117); Anion Gap 4 (5-15); BUN 13 mg/dL (7-18); BUN/Creat Ratio 14.1 RATIO (10-20); Calcium,Total 9.4 mg/dL (8.5-10.1); Chloride 105 mmol/L (98-107); Creatinine, Serum 0.92 mg/dL (0.55-1.02); EST Glomerular Filtration Rate 71 mL/min (>60); Est Glom Filt Rate - Afr Amer 86 mL/min (>60); Glucose 90 mg/dL (74-106); Potassium 3.9 mmol/L (3.5-5.1); Protein, Total 7.6 g/dL (6.4-8.2); Sodium Level 138 mmol/L (136-145)
== END | disposition home or self-care (01) ==
PROVIDERS: PCP Family Medicine; Referring Provider Internal Medicine Rheumatology; Visit Provider Internal Medicine Rheumatology
DX: M06.4 Inflammatory polyarthropathy (principal); Z79.899 Other long term (current) drug therapy
CPT/HCPCS: 36415; 80053; 85025

== ENCOUNTER → 2024-10-06 | Outpatient (CLI) | payer OTHER, SELFPAY ==
[2024-10-06 12:46] LABS: Absolute Lymphocyte Count 1.84 X10^3/uL (0.83-4.51); Absolute Neutrophil Count 4.3 X10^3/uL (2.0-7.7); Basophil# 0.03 X10^3/uL; Basophil% 0.4 % (0-1); Eosinophil# 0.15 X10^3/uL; Eosinophils% 2.2 % (0-5); Hematocrit 39.2 % (37-47); Hemoglobin 12.9 g/dL (12.0-15.0); Lymphocyte # 1.84 X10^3/ul (0.83-4.51); Lymphocyte % 27.3 % (19-41); Mean Corp Hgb Conc 32.9 g/dL (32-36); Mean Corpuscular Hgb 30.9 pg (27.0-32.0); Mean Platelet Vol. 11.9 fl (6.2-12.0); Monocyte# 0.42 X10^3/uL; Monocyte% 6.2 % (0-10); NRBC Flagged by Analyzer 0 % (0-5); Neutrophil # 4.29 X10^3/uL (2.7-7.7); Neutrophil % 63.6 % (47-70); Platelet Count 236 K/mm3 (150-450); RBC Distribution Width CV 12.9 % (11.6-14.6); RBC Distribution Width SD 44.6 fl (35.1-43.9); Red Blood Count 4.17 M/mm3 (4.2-5.4); White Blood Count 6.8 K/mm3 (4.4-11.0)
[2024-10-06 14:29] LABS: ALB/GLOB Ratio 1.5 RATIO (0.9-2.4); AST(SGOT) 24 U/L (<=31); Alanine Aminotransfer ALT/SGPT 19 U/L (<=34); Albumin, Serum 4.4 g/dL (3.5-5.0); Alkaline Phosphatase 88 U/L (35-104); Anion Gap 12 (5-15); BUN 10 mg/dL (4-19); BUN/Creat Ratio 11.7 RATIO (10-20); Calcium,Total 9.8 mg/dL (7.6-11.0); Carbon Dioxide 23.6 mmol/L (21.0-32.0); Chloride 103 mmol/L (98-108); Creatinine, Serum 0.88 mg/dL (0.70-1.20); EST Glomerular Filtration Rate 84 (>60); Glucose 98 mg/dL (70-99); Potassium 4.2 mmol/L (3.3-5.1); Protein, Total 7.4 g/dL (5.9-8.4); Sodium Level 139 mmol/L (133-145); Total Bilirubin 1.05 mg/dL (0.00-1.30)
== END | disposition home or self-care (01) ==
LOC: MTLAB 11:15
PROVIDERS: PCP Family Medicine; Referring Provider Internal Medicine Rheumatology; Visit Provider Internal Medicine Rheumatology
DX: M06.4 Inflammatory polyarthropathy (principal); Z79.899 Other long term (current) drug therapy
CPT/HCPCS: 36415; 80053; 85025